=== PATIENT | female | born 1945 | race Caucasian/White ===

== ENCOUNTER 2017-03-02 09:48 | Day surgery (SDC) | payer MEDICARE, BC ==
[~2017-03-02] VITALS: Ht 171.4 cm; Wt 64.0 kg
[2017-03-02] MEDS ORDERED: SODIUM CHLORIDE 0.9% 500 ML IV PRN (10:28)
[2017-03-02 10:38] VITALS: BP 127/92
[2017-03-02] MEDS ORDERED: PLEASE ENTER HEIGHT AND WEIGHT MC SCH (11:00)
[2017-03-02 11:01] LABS: HEMATOCRIT 36.4 % (34.6-47.8); HEMOGLOBIN 12.2 g/dL (11.7-16.4); WHITE BLOOD COUNT 3.9 x10^3/uL (3.4-10)
[2017-03-02] MEDS ORDERED: VALS320T2 PO (11:01)
[2017-03-02] MEDS ORDERED: METO25TA91 PO (11:01)
[2017-03-02] MEDS ORDERED: IBAN150T PO (11:01)
[2017-03-02] MEDS ORDERED: HYDR25TA6 PO (11:01)
[2017-03-02] MEDS ORDERED: APIX5TAB PO (11:01)
[2017-03-02 11:12] LABS: BLOOD UREA NITROGEN 15 mg/dL (7-18)
[2017-03-02] MEDS ORDERED: PROPOFOL 10 MG/ML, 20ML ONE (12:00)
[2017-03-02] MEDS ORDERED: POTASSIUM CHLORIDE 20 MEQ TAB.ER.PRT PO ONE (12:00)
== END 2017-03-02 13:45 | disposition home or self-care (01) ==
LOC: CACL 09:48
PROVIDERS: ATTEND Internal Medicine Cardiovascular Disease
DX: I48.0 Paroxysmal atrial fibrillation (principal); I34.0 Nonrheumatic mitral (valve) insufficiency; I34.1 Nonrheumatic mitral (valve) prolapse; I10 Essential (primary) hypertension; E78.5 Hyperlipidemia, unspecified; Z95.2 Presence of prosthetic heart valve; Z88.8 Allergy status to other drugs, medicaments and biological substances; I36.1 Nonrheumatic tricuspid (valve) insufficiency
CPT/HCPCS: 36415; 80048; 85025; 85610; 92960; J2704

== ENCOUNTER 2017-10-01 16:06 | Inpatient (IN) | payer MEDICARE, BC ==
[~2017-10-01] VITALS: Ht 170.2 cm; Wt 65.8 kg
[~2017-10-01 16:06] MED LIST: APIX5TAB PO; HYDR25TA6 PO; IBAN150T PO; METO25TA91 PO; VALS320T2 PO
[2017-10-01] MEDS ORDERED: SODIUM CHLORIDE FLUSH 10ML SYR IVF ONE (16:30)
[2017-10-01 16:55] LABS: BASOPHILS # (AUTO) 0.01 x10^3/uL (0-0.1); BASOPHILS % (AUTO) 0 % (0-1); EOSINOPHILS # (AUTO) 0.19 x10^3/uL (0-0.4); EOSINOPHILS % (AUTO) 4 % (1-7); LYMPHOCYTES # (AUTO) 0.85 x10^3/uL (1-3.4); LYMPHOCYTES % (AUTO) 18 % (22-44); MD NO; MEAN CORPUSCULAR HEMOGLOBIN 29.9 pg (27.0-34.8); MEAN CORPUSCULAR HGB CONC 32.5 g/dL (32.4-35.8); MEAN CORPUSCULAR VOLUME 91.9 fL (80-100); MEAN PLATELET VOLUME 9.1 fL (7.4-10.4); MONOCYTES # (AUTO) 0.54 x10^3/uL (0.2-0.8); MONOCYTES % (AUTO) 11 % (2-9); NEUTROPHILS # (AUTO) 3.25 x10^3/uL (1.8-6.8); NEUTROPHILS % (AUTO) 67 % (42-75); PLATELET COUNT 146 x10^3/uL (130-400); RED BLOOD COUNT 4.18 x10^6/uL (3.82-5.3); RED CELL DISTRIBUTION WIDTH 14.7 % (9.6-15.2)
[2017-10-01] MEDS ORDERED: METOPROLOL 1 MG/ML, 5ML IVPush ONE (17:00)
[2017-10-01 17:01] LABS: INTERNATIONAL NORMALIZED RATIO 1.14 (0.93-1.1); PROTHROMBIN TIME 11.8 Seconds (9.6-11.5)
[2017-10-01 17:04] LABS: ALANINE AMINOTRANSFERASE 21 U/L (12-78); ANION GAP 8 mmol/L (5-15); CALCIUM 9.3 mg/dL (8.5-10.1); CHLORIDE 106 mmol/L (98-107); CREATININE 1.15 mg/dL (0.55-1.02)
[2017-10-01] MEDS ORDERED: METOPROLOL 1 MG/ML, 5ML ONE (17:06)
[2017-10-01 17:09] LABS: ALKALINE PHOSPHATASE 100 U/L (45-117); BILIRUBIN,TOTAL 0.9 mg/dL (0.2-1.0); TOTAL PROTEIN 7.3 g/dL (6.4-8.2); TROPONIN I < 0.015 ng/mL (0.000-0.045)
[2017-10-01 17:28] LABS: THYROID STIMULATING HORMONE 5.46 mIU/L (0.358-3.740)
[2017-10-01] MEDS ORDERED: DILTIAZEM 5 MG/ML, 5ML ONE (17:44)
[2017-10-01] MEDS ORDERED: POTASSIUM CHLORIDE 20 MEQ TAB.ER.PRT ONE (17:44)
[2017-10-01] MEDS ORDERED: POTASSIUM CHLORIDE 20 MEQ TAB.ER.PRT PO ONE ×2 (18:00→23:00)
[2017-10-01] MEDS ORDERED: DILTIAZEM 5 MG/ML, 5ML IVPush ONE (18:00)
[2017-10-01] MEDS ORDERED: LABETALOL 5MG/ML, 20ML IVPush PRN (19:30)
[2017-10-01] MEDS: FUROSEMIDE 20 MG/2 ML IV SCH (19:30)
[2017-10-01] MEDS ORDERED: DOCUSATE 100 MG CAPSULE PO PRN (19:30)
[2017-10-01] MEDS ORDERED: ONDANSETRON ODT 4 MG PO PRN (19:30)
[2017-10-01 21:10] VITALS: BP 129/88
[2017-10-01] MEDS: APIXABAN 5 MG TABLET PO SCH (21:22)
[2017-10-02 01:02] VITALS: BP 115/78
[2017-10-02 05:40] LABS: BASOPHILS # (AUTO) 0.03 x10^3/uL (0-0.1); BASOPHILS % (AUTO) 1 % (0-1); EOSINOPHILS # (AUTO) 0.21 x10^3/uL (0-0.4); EOSINOPHILS % (AUTO) 5 % (1-7); LYMPHOCYTES # (AUTO) 0.75 x10^3/uL (1-3.4); LYMPHOCYTES % (AUTO) 18 % (22-44); MD NO; MEAN CORPUSCULAR HEMOGLOBIN 30.3 pg (27.0-34.8); MEAN CORPUSCULAR VOLUME 91.9 fL (80-100); MEAN PLATELET VOLUME 9.2 fL (7.4-10.4); MONOCYTES # (AUTO) 0.54 x10^3/uL (0.2-0.8); MONOCYTES % (AUTO) 13 % (2-9); NEUTROPHILS # (AUTO) 2.72 x10^3/uL (1.8-6.8); NEUTROPHILS % (AUTO) 64 % (42-75); PLATELET COUNT 123 x10^3/uL (130-400); RED BLOOD COUNT 3.64 x10^6/uL (3.82-5.3); RED CELL DISTRIBUTION WIDTH 14.4 % (9.6-15.2)
[2017-10-02 05:52] LABS: CHLORIDE 109 mmol/L (98-107)
[2017-10-02 05:58] LABS: ANION GAP 8 mmol/L (5-15); CREATININE 1.09 mg/dL (0.55-1.02)
[2017-10-02] MEDS: ACETAMINOPHEN 325 MG TABLET PO PRN ×2 (06:16→18:58)
[2017-10-02] MEDS: FUROSEMIDE 20 MG/2 ML IV SCH (06:17)
[2017-10-02 07:05] VITALS: BP 115/75
[2017-10-02] MEDS: APIXABAN 5 MG TABLET PO SCH ×2 (08:19→19:51)
[2017-10-02] MEDS: VALSARTAN 320 MG TABLET PO SCH (08:19)
[2017-10-02] MEDS ORDERED: FUROSEMIDE 40 MG TABLET PO SCH (09:00)
[2017-10-02] MEDS ORDERED: METOPROLOL SUCCINATE 25 MG TAB.ER.24H PO SCH (09:00)
[2017-10-02 13:45] VITALS: BP 128/87
[2017-10-02] MEDS ORDERED: METO25TA4 PO (13:49)
[2017-10-02] MEDS: POTASSIUM CHLORIDE 20 MEQ TAB.ER.PRT PO SCH (17:36)
[2017-10-02 19:57] VITALS: BP 124/92
[2017-10-02] MEDS ORDERED: METOPROLOL TARTRATE 25 MG TABLET PO SCH (21:00)
[2017-10-03] MEDS: TEMAZEPAM 15 MG CAPSULE PO PRN ×2 (00:36→21:35)
[2017-10-03 00:38] VITALS: BP 111/75
[2017-10-03 04:49] LABS: BASOPHILS # (AUTO) 0.03 x10^3/uL (0-0.1); BASOPHILS % (AUTO) 1 % (0-1); EOSINOPHILS % (AUTO) 2 % (1-7); LYMPHOCYTES # (AUTO) 0.57 x10^3/uL (1-3.4); LYMPHOCYTES % (AUTO) 14 % (22-44); MD NO; MEAN CORPUSCULAR HEMOGLOBIN 30.7 pg (27.0-34.8); MEAN CORPUSCULAR HGB CONC 33.3 g/dL (32.4-35.8); MEAN CORPUSCULAR VOLUME 92.1 fL (80-100); MEAN PLATELET VOLUME 9.2 fL (7.4-10.4); MONOCYTES # (AUTO) 0.52 x10^3/uL (0.2-0.8); MONOCYTES % (AUTO) 13 % (2-9); NEUTROPHILS # (AUTO) 2.81 x10^3/uL (1.8-6.8); NEUTROPHILS % (AUTO) 70 % (42-75); PLATELET COUNT 112 x10^3/uL (130-400); RED BLOOD COUNT 3.49 x10^6/uL (3.82-5.3); RED CELL DISTRIBUTION WIDTH 14.7 % (9.6-15.2)
[2017-10-03 05:01] LABS: ANION GAP 9 mmol/L (5-15); CALCIUM 8.6 mg/dL (8.5-10.1); CHLORIDE 107 mmol/L (98-107); CREATININE 1.09 mg/dL (0.55-1.02)
[2017-10-03] MEDS: LEVOTHYROXINE 100 MCG TABLET PO SCH (06:11)
[2017-10-03 08:17] VITALS: BP 131/98
[2017-10-03] MEDS: VALSARTAN 320 MG TABLET PO SCH (08:18)
[2017-10-03] MEDS: POTASSIUM CHLORIDE 20 MEQ TAB.ER.PRT PO SCH ×2 (08:18→17:49)
[2017-10-03] MEDS: FUROSEMIDE 40 MG TABLET PO SCH (08:19)
[2017-10-03] MEDS: APIXABAN 5 MG TABLET PO SCH ×2 (08:19→20:30)
[2017-10-03] MEDS: METOPROLOL TARTRATE 50 MG TABLET PO SCH ×2 (08:19→20:30)
[2017-10-03] MEDS ORDERED: FUROSEMIDE 20 MG/2 ML IV SCH ×2 (09:00→16:00)
[2017-10-03 16:02] VITALS: BP 114/79
[2017-10-03 20:47] VITALS: BP 114/88
[2017-10-04 02:10] VITALS: BP 118/80
[2017-10-04 05:31] LABS: CHLORIDE 104 mmol/L (98-107)
[2017-10-04 05:36] LABS: CALCIUM 8.3 mg/dL (8.5-10.1); CREATININE 1.41 mg/dL (0.55-1.02)
[2017-10-04 06:05] LABS: ANION GAP 9 mmol/L (5-15)
[2017-10-04] MEDS: LEVOTHYROXINE 100 MCG TABLET PO SCH (06:23)
[2017-10-04 07:10] VITALS: BP 119/79
[2017-10-04] MEDS: POTASSIUM CHLORIDE 20 MEQ TAB.ER.PRT PO SCH (08:03)
[2017-10-04] MEDS: METOPROLOL TARTRATE 50 MG TABLET PO SCH (08:03)
[2017-10-04] MEDS: VALSARTAN 320 MG TABLET PO SCH (08:03)
[2017-10-04] MEDS: FUROSEMIDE 40 MG TABLET PO SCH (08:03)
[2017-10-04] MEDS: APIXABAN 5 MG TABLET PO SCH (08:03)
[2017-10-04] MEDS ORDERED: LEVO100T PO (08:43)
[2017-10-04] MEDS ORDERED: POTA20TA6 PO (08:43)
[2017-10-04] MEDS ORDERED: METO50TA82 PO (08:43)
[2017-10-04] MEDS ORDERED: FURO40TA6 PO (08:43)
== END 2017-10-04 10:43 | disposition home or self-care (01) | DRG 291 ==
LOC: ED 17:07 → EDIP 17:40 → 5SO 20:01 → DCLOUNGE 10-04 10:25
PROVIDERS: ADMIT Internal Medicine; ATTEND Internal Medicine
DX: I13.0 Hypertensive heart and chronic kidney disease with heart failure and stage 1 through stage 4 chronic kidney disease, or unspecified chronic kidney disease (principal); I50.43 Acute on chronic combined systolic (congestive) and diastolic (congestive) heart failure; N17.9 Acute kidney failure, unspecified; D68.69 Other thrombophilia; D69.6 Thrombocytopenia, unspecified; I08.1 Rheumatic disorders of both mitral and tricuspid valves; I27.20 Pulmonary hypertension, unspecified; I48.92 Unspecified atrial flutter; I48.2 Chronic atrial fibrillation; Z79.01 Long term (current) use of anticoagulants; E03.9 Hypothyroidism, unspecified; D64.9 Anemia, unspecified; E87.6 Hypokalemia; M81.0 Age-related osteoporosis without current pathological fracture; Z79.83 Long term (current) use of bisphosphonates; Z79.899 Other long term (current) drug therapy; Z82.49 Family history of ischemic heart disease and other diseases of the circulatory system; Z95.2 Presence of prosthetic heart valve; N18.9 Chronic kidney disease, unspecified
CPT/HCPCS: 36415; 71046; 80048; 80053; 83735; 83880; 84132; 84443; 84484; 85025; 85379; 85610; 93005; 93306; 96374; 96375; Q0162; J1940

== ENCOUNTER → 2019-10-03 | Outpatient (CLI) | payer MEDICARE, BC ==
[~2019-10-03] MED LIST changes: +FURO40TA6 PO; -IBAN150T PO; +IBAN150T15 PO; +LEVO100T PO; +METO25TA4 PO; +METO50TA82 PO; +POTA20TA6 PO
== END | disposition home or self-care (01) ==
LOC: CFH 09:45
PROVIDERS: ATTEND Internal Medicine Cardiovascular Disease
DX: I08.8 Other rheumatic multiple valve diseases (principal); I11.9 Hypertensive heart disease without heart failure; I48.91 Unspecified atrial fibrillation; E78.5 Hyperlipidemia, unspecified
CPT/HCPCS: 93306

== ENCOUNTER → 2021-01-12 | Outpatient (CLI) | payer MEDICARE, BC | END | disposition home or self-care (01) | LOC: CFH 15:23 | PROVIDERS: ATTEND Internal Medicine Cardiovascular Disease | DX: I08.8 Other rheumatic multiple valve diseases (principal); I11.9 Hypertensive heart disease without heart failure | CPT/HCPCS: 93306 ==